=== PATIENT | female | born 1950 | race Caucasian/White ===

== ENCOUNTER → 2017-10-10 09:43 | Outpatient (CLI) | payer MEDICARE, SELFPAY ==
[2017-10-10 10:34] LABS: AST(SGOT) 20 U/L (15-37); Alanine Aminotransfer ALT/SGPT 23 U/L (13-56); Albumin, Serum 3.8 g/dL (3.2-5.0); Alkaline Phosphatase 72 U/L (45-117); Bilirubin, Direct 0.17 mg/dL (0.00-0.30); Cholesterol 112 mg/dL (200); Globulin 3.4 g/dL (2.2-4.2); High Density Lipoprotein 51 mg/dL; Protein, Total 7.2 g/dL (6.4-8.2); Triglycerides 137 mg/dL; Very Low Density Lipoprotein 27 mg/dL (5-40)
== END ==
PROVIDERS: Family Provider Family Medicine; PCP Family Medicine; Visit Provider Internal Medicine Cardiovascular Disease
DX: E78.5 Hyperlipidemia, unspecified (principal); Z79.899 Other long term (current) drug therapy
CPT/HCPCS: 36415; 80061; 80076

== ENCOUNTER → 2023-06-25 | Outpatient (CLI) | payer MEDICARE, SELFPAY ==
[2023-06-25 12:18] VITALS: PULSE 74; PULSE 75; PULSE 82; PULSE 83; PULSE 84; PULSE 86; PULSE 87; PULSE 89; O2SAT 92; O2SAT 93; O2SAT 94
--- NOTE | 2023-06-25 12:24 | CPS ---
PATIENT ARRIVED FOR WALK TEST IN A WHEELCHAIR DUE TO DISTANCE FROM MAIN ENTRANCE. ENTIRE TEST DONE WITH PATIENT ON ROOM AIR. SHE RESTED FREQUENTLY THROUGHOUT TESTING DUE TO INCREASED WOB AND DIZZINESS. SPO2 AND HR REMAINED STABLE. ATTEMPTED TO CARBON COATING MACHINE OPERATOR THE PATIENT THROUGH PURSED-LIP BREATHING TO SLOW HER RR, WHICH INCREASED RAPIDLY EACH TIME SHE BEGAN TO WALK. SHE WALKED 211FT DURING THE TEST AND WAS ASYMPTOMATIC UPON RESTING IN THE WHEELCHAIR.
--- NOTE | 2023-06-26 09:26 | PCM.PSN.6M ---
PSN 6 Minute Walk Test 6 Minute Walk Test 6 Minute Walk Test: 6 Minute Walk Test PSN:6-Minute Walk Test Start: 06/25/23 12:17 Freq: Status: Active Protocol: [id number] Document 06/25/23 12:18 [facility] (Rec: 06/25/23 12:32 [facility] [id number]) 6 Minute Walk Test Date Performed 06/25/23 Time Performed 12:05 Height 5 ft 3 in Weight: 100 lb Weight in Pounds 100.[address]: Germain [place] Assistive device used: None Pre-test Oxygen Delivery Method Room Air Pulse Ox 93 Pulse Rate (60-100) 74 Dyspnea Leandra Scale (0-10) 0 1st minute Oxygen Delivery Method Room Air Pulse Ox 93 Pulse Rate (60-100) 82 Dyspnea Leandra Scale (0-10) 2 Number of Rests Taken 1 Reported Symptoms Increased Work of Breathing 2nd minute Oxygen Delivery Method Room Air Pulse Ox 93 Pulse Rate (60-100) 83 Dyspnea Leandra Scale (0-10) 3 Number of Rests Taken 1 Reported Symptoms Increased Work of Breathing 3rd minute Oxygen Delivery Method Room Air Pulse Ox 94 Pulse Rate (60-100) 84 Dyspnea Leandra Scale (0-10) 4 Number of Rests Taken 1 Reported Symptoms Increased Work of Breathing, Dizziness 4th minute Oxygen Delivery Method Room Air Pulse Ox 93 Pulse Rate (60-100) 87 Dyspnea Leandra Scale (0-10) 4 Number of Rests Taken 1 Reported Symptoms Increased Work of Breathing, Dizziness 5th minute Oxygen Delivery Method Room Air Pulse Ox 93 Pulse Rate (60-100) 89 Dyspnea Leandra Scale (0-10) 4 Number of Rests Taken 1 Reported Symptoms Increased Work of Breathing, Dizziness 6th minute Oxygen Delivery Method Room Air Pulse Ox 92 Pulse Rate (60-100) 86 Dyspnea Leandra Scale (0-10) 4 Number of Rests Taken 1 Reported Symptoms Increased Work of Breathing, Dizziness Post-test Oxygen Delivery Method Room Air Pulse Ox 94 Pulse Rate (60-100) 75 Dyspnea Leandra Scale (0-10) 0 Full Laps Walked 3 Partial Lap, Number of Tiles Walked 34 Total Distance Walked (ft) 211 06/25/23 12:24 Cardiopulmonary Services by Iain PATIENT ARRIVED FOR WALK TEST IN A WHEELCHAIR DUE TO DISTANCE FROM MAIN ENTRANCE. ENTIRE TEST DONE WITH PATIENT ON ROOM AIR. SHE RESTED FREQUENTLY THROUGHOUT TESTING DUE TO INCREASED WOB AND DIZZINESS. SPO2 AND HR REMAINED STABLE. ATTEMPTED TO CAVITY PUMP OPERATOR THE PATIENT THROUGH PURSED-LIP BREATHING TO SLOW HER RR, WHICH INCREASED RAPIDLY EACH TIME SHE BEGAN TO WALK. SHE WALKED 211FT DURING THE TEST AND WAS ASYMPTOMATIC UPON RESTING IN THE WHEELCHAIR. Initialized on 06/25/23 12:24 - END OF NOTE Interpretation Interpretation: The patient ambulated 211 feet over the course of 6 minutes beginning on room air without assistive devices. Pretesting oxygen saturation was noted to be 93% on room air. With ambulation, the sri oxygen saturation was 92%. Although there was evidence of impaired walk distance, there was no significant exertional oxygen desaturation. Recommendations Recommendations: There is no indication for the use of supplemental oxygen at this time.
== END | disposition home or self-care (01) ==
LOC: PSN 11:57
PROVIDERS: Referring Provider Internal Medicine Critical Care Medicine; Visit Provider Internal Medicine Critical Care Medicine
DX: J44.9 Chronic obstructive pulmonary disease, unspecified (principal); F17.210 Nicotine dependence, cigarettes, uncomplicated
CPT/HCPCS: 94618

== ENCOUNTER → 2023-06-30 | Outpatient (CLI) | payer MEDICARE, SELFPAY | END | disposition home or self-care (01) | LOC: PSN 12:35 | PROVIDERS: Referring Provider Internal Medicine Critical Care Medicine; Visit Provider Internal Medicine Critical Care Medicine | DX: J44.9 Chronic obstructive pulmonary disease, unspecified (principal); F17.210 Nicotine dependence, cigarettes, uncomplicated | CPT/HCPCS: 94060; 94726 ==

== ENCOUNTER → 2023-07-07 | Outpatient (CLI) | payer MEDICARE, SELFPAY ==
--- OUTSIDE RECORDS SUMMARY | 2023-07-07 08:07 | XMS RPT_ITS | CCD ---
Author Name Unknown Address [address] [facility] [address] [place] [id number] Organization [facility] Care Team Providers Care Fabric Sourcer Name Role Phone Unavailable Primary Care Provider Unavailjuaquin SANDERS MD, SUSIE Wynne Primary Care Physician AVTAR POE DO Primary Care Physician AVTAR POE DO Primary Care Unavailable AVTAR POE DO Attending Unavailable AVTAR POE DO Primary Care Unavailable AVTAR POE DO Attending Unavailable AVTAR POE DO Primary Care Unavailable AVTAR POE DO Attending Unavailable AVTAR POE DO Attending Unavailable AVTAR POE DO Primary Care Unavailable AVTAR POE DO Primary Care Unavailable AVTAR POE DO Attending Unavailable AVTAR POE DO Primary Care Unavailable AVTAR POE DO Attending Unavailable AVTAR POE DO Primary Care Unavailable AVTAR POE DO Attending Unavailable Allergies Allergy Classification Reported Allergen(s) Allergy Type Date of Onset Reaction(s) Facility (2 sources) Naproxen Drug Allergy 0 Rash [place], [place] (2 sources) Penicillins Propensity to adverse reactions to drug 0 Hives [place], [place] (9 sources) Azithromycin; Translations: [azithromycin] Drug Allergy Nausea and vomiting (disorder) [facility] Work Phone: (9 sources) Ciprofloxacin; Translations: [ciprofloxacin] Drug Allergy Vomiting (disorder) [facility] Work Phone: (9 sources) Naproxen; Translations: [naproxen] Drug Allergy [facility] Work Phone: (9 sources) Penicillin; Translations: [penicillins] Drug Allergy [facility] Work Phone: (9 sources) tiotropium; Translations: [tiotropium] Drug Allergy Tremor (finding) [facility] Work Phone: Medications Current Medications Medication Drug Class(es) Dates Sig (Normalized) Sig (Original) albuterol MDI (90 mcg/inh) CFC free inhalation aerosol (9 sources) Start: 05-19-2023 take 2 puff(s) by inhalation every four hours as needed for wheezing albuterol MDI (90 mcg/inh) CFC free inhalation aerosol 2 puff(s), Inhalation, q4h, PRN as needed for wheezing, Desires Ventolin inhaler brand, # 18 gram(s), 0 Refill(s), Pharmacy: [facility] #[id number], Acute bacterial bronchitis, 161.5, cm, 05/19/23 15:56:00 EST, Height, kg, 05/19/23 15:56:00 EST, Dosing Weight Start Date: 05/19/23 Status: Ordered Completed/Discontinued Medications Medication Drug Class(es) Dates Sig (Normalized) Sig (Original) albuterol 5 mg/ml inhalation solution (15 sources) beta2-Adrenergic Agonist Start: 03-16-2023 take 0.5 mL by inhalation every four hours as needed for wheezing albuterol 5 mg/mL (0.5%) inhalation solution Dose : 2.5 mg = 0.5 mL, Inhalation, q4h, PRN for wheezing, # 30 EA, 0 Refill(s), Pharmacy: [facility] #[id number], 162, cm, 03/16/23 15:12:00 EDT, Height, kg, 03/16/23 15:12:00 EDT, Dosing Weight Start Date: 03/16/23 Status: Ordered Problems Active Problems Problem Classification Problem Date Documented Da te Episodic/Chronic Acute myocardial infarction (2 sources) Myocardial infarction 11-05-2014 Chronic Anxiety disorders (8 sources) Anxiety; Translations: [Generalized anxiety disorder] 08-02-2021 Chronic Asthma (9 sources) Asthma 11-05-2014 Chronic Chronic obstructive pulmonary disease and bronchiectasis (9 sources) Chronic obstructive lung disease 11-05-2014 Chronic Coronary atherosclerosis and other heart disease (16 sources) Coronary arteriosclerosis; Translations: [History of myocardial infarction] 05-03-2021 Chronic Coronary atherosclerosis and other heart disease (9 sources) Stented coronary artery; Translations: [Presence of coronary angioplasty implant and graft] Onset: 03-16-2023 06-13-2022 Episodic Diabetes mellitus with complications (2 sources) Type 2 diabetes mellitus with other circulatory complications; Translations: [Type 2 diabetes mellitus with other circulatory complications] Onset: 03-16-2023 Chronic Diabetes mellitus without complication (9 sources) Diabetes mellitus; Translations: [Type 2 diabetes mellitus] 09-07-2013 Chronic Essential hypertension (9 sources) Essential hypertension 09-07-2013 Chronic Neoplasms of unspecified nature or uncertain behavior (1 source) Thrombocytosis 07-04-2022 Chronic Nutritional deficiencies (6 sources) Vitamin D deficiency 06-23-2022 Chronic Osteoporosis (4 sources) Osteoporosis 09-26-2022 Chronic Other and unspecified benign neoplasm (9 sources) History of polyp of colon 09-07-2013 Episodic Other hematologic conditions (1 source) Thrombocytosis; Translations: [Thrombocytosis, unspecified] Episodic Other nervous system disorders (4 sources) Tremor 12-02-2022 Episodic Residual codes; unclassified (5 sources) Family history of cancer of colon 09-12-2022 Episodic Respiratory failure; insufficiency; arrest (adult) (7 sources) Dependence on supplemental oxygen 06-13-2022 Chronic Substance-related disorders (7 sources) Anxiolytic dependence 06-13-2022 Chronic Past or Other Problems Problem Classification Problem Date Documented Da te Episodic/Chronic Cataract (4 sources) Combined forms of age-related cataract, left eye; Translations: [Combined forms of age-related cataract, right eye] Onset: 04-05-2020 Resolved: 08-27-2020 04-09-2020 Chronic Results Test Name Value Interpretation Reference Range Facil ity Vital Signs Date Time Vital Sign Value Performing Clinician Barney franklin 08-27-2020 15:04-0400 Body Temperature 98.8 [degF] Felisa Matthews [employer] Work Phone: 08-27-2020 15:04-0400 BP Diastolic 101 mm[Hg] Felisa Matthews [employer] Work Phone: 08-27-2020 15:04-0400 BP Systolic 134 mm[Hg] Felisa Matthews [employer] Work Phone: 08-27-2020 15:04-0400 Pulse (Heart Rate) 87 /min Felisa Matthews [employer] Work Phone: 08-27-2020 15:04-0400 Pulse Oximetry 96 % Felisa Matthews [employer] Work Phone: 08-27-2020 15:04-0400 Respiratory Rate 15 /min Felisa Matthews [employer] Work Phone: 08-27-2020 12:30-0400 BMI (Body Mass Index) 24.45 kg/m2 Felisa Matthews [employer] Work Phone: 08-27-2020 12:30-0400 Body weight 62.6 kg Felisa Matthews [employer] Work Phone: 08-27-2020 12:30-0400 Height 160 cm Felisa Matthews [employer] Work Phone: 04-09-2020 14:06-0500 Body Temperature 98.2 [degF] [facility] [place] 04-09-2020 14:06-0500 BP Diastolic 85 mm[Hg] [facility] [place] 04-09-2020 14:06-0500 BP Systolic 135 mm[Hg] [facility] [place] 04-09-2020 14:06-0500 Pulse (Heart Rate) 75 /min Fel[facility] [place] 04-09-2020 14:06-0500 Pulse Oximetry 94 % [facility] [place] 04-09-2020 14:06-0500 Respiratory Rate 16 /min Felisa [facility] [place] 04-09-2020 11:47-0500 BMI (Body Mass Index) 24.09 kg/m2 Felisa [facility] [place], [place] 04-09-2020 11:47-0500 Body weight 61.69 kg [facility] 04-09-2020 11:47-0500 Height 160 cm [place], [place] Encounters Encounter Date Encounter Type Care Provider Facility Start: 06-19-2023 End: 06-23-2023 Outreach Lab AVTAR POE DO [facility] Start: 06-15-2023 End: 06-15-2023 Patient encounter procedure AVTAR Greta POE DO [facility] Start: 06-08-2023 ambulatory AVTAR POE DO Faci lity:B Start: 06-04-2023 ambulatory AVTAR POE DO Faci lity:B Start: 06-04-2023 End: 06-05-2023 ambulatory AVTAR POE DO Facility:B Start: 06-04-2023 End: 06-04-2023 Patient encounter procedure AVTAR POE DO [facility] Start: 03-16-2023 End: 03-21-2023 ambulatory AVTAR POE DO Facility:B Start: 03-16-2023 End: 03-21-2023 Encounter for general adult medical examination without abnormal findings AVTAR POE DO Facility:B Start: 03-16-2023 End: 03-20-2023 Outreach Lab AVTAR POE DO [facility] Start: 09-24-2022 End: 09-25-2022 ambulatory AVTAR POE DO Facility:B Start: 09-24-2022 End: 09-24-2022 Patient encounter procedure AVTAR POE DO [facility] Start: 09-04-2022 End: 09-05-2022 ambulatory AVTAR POE DO Facility:B Start: 09-04-2022 End: 09-04-2022 Patient encounter procedure AVTAR POE DO [facility] Start: 09-04-2022 End: 09-04-2022 Well adult monitoring check done AVTAR Greta DEEPIKA DO [facility] Start: 06-20-2022 End: 06-21-2022 ambulatory AVTAR POE DO Facility:B Start: 06-20-2022 End: 06-20-2022 Patient encounter procedure AVTAR POE DO [facility] Start: 08-27-2021 End: 08-27-2021 Patient encounter procedure SUSIE SANDERS MD [facility] Start: 07-29-2021 End: 07-29-2021 Patient encounter procedure SUSIE SANDERS MD [facility] Start: 08-27-2020 End: 08-27-2020 Subsequent hospital visit by physician Felisa Matthews Work Phone: [facility] Surgery Procedures Date Procedure Procedure Detail Performing Clinician Start: 04-09-2020 OPERATIVE REPORT 3m Sca nning Start: 10-26-2011 Catheterization SUSIE SANDERS MD Start: 06-11-2007 Colonoscopy SUSIE DUMONT MD Plan of Treatment Date Care Activity Detail Author Start: 01-17-2020 Influenza vaccination Flu vaccine (# 1) [place], [place] Start: 2017 Pneumococcal 65+ yea rs Vaccine (1 of 1 - PPSV23) Pneumococcal 65+ years Vaccine (1 of 1 - PPSV23) [place] Start: 09-23-2007 Screening for malign ant neoplasm of lung Low dose CT lung screening [place], [place] Start: 09-23-2007 Screening for osteoporosis DEXA (modify frequency per FRAX score) [place] Start: 2002 Screening for malign ant neoplasm of breast Breast cancer screen [place], [place] Start: 2002 Screening for malign ant neoplasm of colon Colon cancer screen colonoscopy [place], [place] Start: 2002 Shingles Vaccine (1 of 2) Shingles V accine (1 of 2) [place] Start: 09-23-1971 DTaP/Tdap/Td vaccine (1 - Tdap) DTaP/Tdap/Td vaccine (1 - Tdap) [place], [place] Start: 1968 COVID-19 Vaccine (1) COVID-19 Vaccin e (1) [facility] Work Phone: Start: 1962 Lipid panel Lipid screen [place], [place] Start: 1952 Hepatitis C screening Hepatitis C sc reen [place], [place] End: 04-09-2020 Blood glucose - POCT Blood glucose - POCT Point of Care Testing STAT One Time for 1 Occurrences starting 04/09/2020 until 04/09/2020 [place] Immunizations Immunization Date Immunization Notes Care Provider Fa [facility] 03-05-2023 RSV vaccine preF3, recombinant 1 AVTAR POE DO [facility] Payers Date Payer Category Payer Medicare [id number] 1950 Unknown [id number] [id number] 1950 Unknown [id number] [id number] [id number] 1950 Unknown [id number] 2.16.8 [id number] 1950 Unknown [id number] 2.16.8 [id number] 1950 Unknown [id number] 2.16.8 [id number] 1950 Unknown [id number] 2.16.8 [id number] 1950 Unknown [id number] [id number] [id number] Social History Date Type Detail Facility Start: 04-09-2020 End: 08-27-2020 Tobacco smoking status NHIS Current every day smoker [place] History of tobacco use Cigarette Smoker [place] Start: 04-09-2020 End: 08-27-2020 Cigarettes smoked current (pack per day) - Reported [place] Start: 04-09-2020 End: 08-27-2020 Tobacco use and exposure Never used [place], [place] Start: 04-09-2020 End: 08-27-2020 Alcohol intake Current drinker of alcohol (finding) [place] Start: 04-05-2020 Alcohol Comment rarely [place], [place] Sex Assigned At Not on file [place] Exposure to SARS-CoV -2 (event) Not sure [facility] Work Phone: Start: 11-30-2018 Heavy tobacco smoker (finding) [facility] Sex Assigned At Female [facility] Clinical Notes 09-24-2022 LaboratoryLaboratoryLaboratoryLaboratoryRadiologyLaboratoryLaboratoryRadiology Note Date & Type Note Facility 09-24-2022 Note ORIGINAL EXAMINATION: BONE DENSITOMETRY09/24/2022 2:02 pm TECHNIQUE: Dual energy bone densitometry lumbar spine and left hip. COMPARISON: 02/11/2016 HISTORY: Reason for Exam: Osteoporosis Screening FINDINGS: T Score Left Femoral Neck: -2.7 Left Femoral Neck: 0.551 (g/cm2) T Score Left Hip: -3.0 Left Hip: 0.573 (g/cm2) T Score Lumbar Spine: -3.0 Lumbar Spine: 0.713 (g/cm2) COMMENTS: Done on new machine with new technique BMD Change from previous Hip:-15.1%, significant BMD Change from previous Lumbar Spine:-5.8%, significant IMPRESSION: Osteoporosis. Interpreted by: Vale Cade MD Preliminary Report By: Vale Cade MD Electronically signed By Vale Cade MD Dictated Date: 09/24/2022 2:16:09 PM Prelim Date: 09/24/2022 2:17:53 PM Sign Date: 09/24/2022 2:17:53 PM Ordering Provider: [facility] 09-24-2022 Note ORIGINAL EXAMINATION: BONE DENSITOMETRY09/24/2022 2:02 pm TECHNIQUE: Dual energy bone densitometry lumbar spine and left hip. COMPARISON: 02/11/2016 HISTORY: Reason for Exam: Osteoporosis Screening FINDINGS: T Score Left Femoral Neck: -2.7 Left Femoral Neck: 0.551 (g/cm2) T Score Left Hip: -3.0 Left Hip: 0.573 (g/cm2) T Score Lumbar Spine: -3.0 Lumbar Spine: 0.713 (g/cm2) COMMENTS: Done on new machine with new technique BMD Change from previous Hip:-15.1%, significant BMD Change from previous Lumbar Spine:-5.8%, significant IMPRESSION: Osteoporosis. Interpreted by: Vale Cade MD Preliminary Report By: Vale Cade MD Electronically signed By Vale Cade MD Dictated Date: 09/24/2022 2:16:09 PM Prelim Date: 09/24/2022 2:17:53 PM Sign Date: 09/24/2022 2:17:53 PM Ordering Provider: [facility] Evaluation + Plan note Future Appointments Appointment Date:08/02/2021 03:45:00 PM Scheduled Provider:SUSIE SANDERS MD [facility] Appointment Type:PC OV Future Scheduled TestsComplete Blood Count 05/03/21Lipid Profile 05/03/21Complete Metabolic Panel 05/03/21 [facility] Evaluation + Plan note Future Appointments Appointment Date:11/01/2021 03:30:00 PM Scheduled Provider:SUSIE SANDERS MD Location:[facility] Appointment Type:PC OV Future Scheduled TestsComplete Blood Count 05/03/21Lipid Profile 05/03/21Complete Metabolic Panel 05/03/21 [facility] Evaluation + Plan note Future Appointments Appointment Date:09/12/2022 01:00:00 PM Scheduled Provider:AVTAR POE DO Location:[facility] Appointment Type:PC OV Follow Up [facility] Evaluation + Plan note Future Appointments Appointment Date:10/22/2022 01:30:00 PM Scheduled Provider:AVTAR POE DO Location:[facility] Appointment Type:PC OV Appointment Date:10/29/2022 01:00:00 PM Scheduled Provider:AVTAR POE DO Location:[facility] Appointment Type:PC OV [facility] Evaluation + Plan note Future Appointments Appointment Date:05/19/2023 04:00:00 PM Scheduled Provider:AVTAR POE DO Location:[facility] Appointment Type:PC OV Future Scheduled TestsLDL-Cholesterol, Direct 03/16/23Thyroid Stimulating Hormone 03/16/23Free T4 03/16/23A1C Hemoglobin 03/16/23Complete Blood Count 03/16/23Lipid Profile 03/16/23Vitamin D Level 03/16/23Complete Metabolic Panel 03/16/23 [facility] Evaluation + Plan note Future Appointments Appointment Date:06/15/2023 02:30:00 PM Scheduled Provider: Location:[facility] Appointment Type:CT Chest w/ Contrast Appointment Date:07/09/2023 03:00:00 PM Scheduled Provider: Location:[facility] Appointment Type:NUT Diet Visit Individual Future Scheduled TestsLDL-Cholesterol, Direct 03/16/23Magnesium Level 05/19/23Urinalysis 05/19/23Thyroid Stimulating Hormone 05/19/23Thyroid Stimulating Hormone 03/16/23Free T4 03/16/23Vitamin B12 Level 05/19/23A1C Hemoglobin 05/19/23A1C Hemoglobin 03/16/23Complete Blood Count 05/19/23Complete Blood Count 03/16/23CRP, High Sensitive 05/19/23Lipid Profile 05/19/23Lipid Profile 03/16/23Hepatitis C Antibody IgG 05/19/23IV 1/2 Ab 05/19/23Prealbumin 05/19/23Sedimentation Rate Automated 05/19/23Vitamin D Level 05/19/23Vitamin D Level 03/16/23Complete Metabolic Panel 05/19/23Complete Metabolic Panel 03/16/23CT Thorax w/ Contrast 06/15/23 [facility] Evaluation + Plan note Future Appointments Appointment Date:07/09/2023 03:00:00 PM Scheduled Provider: Location:[facility] Appointment Type:NUT Diet Visit Individual Future Scheduled TestsLDL-Cholesterol, Direct 03/16/23Magnesium Level 05/19/23Urinalysis 05/19/23Thyroid Stimulating Hormone 05/19/23Thyroid Stimulating Hormone 03/16/23Free T4 03/16/23Vitamin B12 Level 05/19/23A1C Hemoglobin 05/19/23A1C Hemoglobin 03/16/23Complete Blood Count 05/19/23Complete Blood Count 03/16/23CRP, High Sensitive 05/19/23Lipid Profile 05/19/23Lipid Profile 03/16/23Hepatitis C Antibody IgG 05/19/23IV 1/2 Ab 05/19/23Prealbumin 05/19/23Sedimentation Rate Automated 05/19/23Vitamin D Level 05/19/23Vitamin D Level 03/16/23Complete Metabolic Panel 05/19/23Complete Metabolic Panel 03/16/23 [facility] Evaluation + Plan note Future Appointments Appointment Date:07/09/2023 03:00:00 PM Scheduled Provider: Location:[facility] Appointment Type:NUT Diet Visit Individual Appointment Date:08/14/2023 04:00:00 PM Scheduled Provider:AVTAR POE DO Location[facility] Appointment Type:PC OV Future Scheduled TestsUrinalysis 05/19/23PET/CT Initial Staging Tumor Skull Base to Mid-Thigh 06/19/23 [facility] Hospital course Narrative No data available for this section [facility] Hospital Discharge instructions No data available for this section [facility] Progress note No data available for this section [facility] Discharge Instructions * Instructions* Felisa Matthews MD - 04/09/2020 Post-Operative Cataract Instructions You may take the patch and shield off and start taking eye drops 4 hours after leaving the hospital. Your vision will be blurry. Starting drops will accelerate your healing process. After using the eye drops, replace the metal or plastic eye shield over the operative eye using a single piece of take Do NOT reapply the cotton patch. ? PREDNISOLONE ACETATE 1%: Apply 1 drop to the surgical eye EVERY HOUR while awake. ? VIGAMOX: Apply 1 drop to the surgical eye EVERY 2 HOUR while awake. ? NEVANAC: Apply 1 drop to the surgical eye EVERY 2 HOUR while awake. Wait 5 minutes in between eye drops. The order does not matter. Continue taking the drops in thismanner until your appointment tomorrow. What to Expect at Home Your Recovery: After surgery, your eye will not hurt. But it may feel scratchy, sticky, or uncomfortable. It may also water more than usual. Most people see better 1 to 3 days after surgery. But it could take 3 to 10 weeks to get the full benefits of surgery and to see as clearly as possible. Your doctor may send you home with a bandage, patch, or clear shield on your eye. This will keep you from rubbing your eye. Your doctor will also give you eyedrops to help your eye heal. Use them exactly as directed. You can read or watch TV right away, but things may look blurry. Most people are able to return to work or their normal routine in 1 to 3 days. After your eye heals, you may still need to wear glasses, especially for reading. This care sheet gives you a general idea about how long it will take for you to recover. But each person recovers at a different pace. Follow the steps below to get better as quickly as possible. How can you care for yourself at home? Activity Rest when you feel tired. Getting enough sleep will help you recover. You may have trouble judging distances for a few days. Move slowly, and be careful going up and down stairs and pouring hot liquids. Ask for help if you need it. Ask your doctor when it is okay to drive. Wear your eye bandage, patch, or shield for as long as your doctor recommends. You may only need towear it when you sleep. You can shower or wash your hair the day after surgery. Keep water, soap, shampoo, hair spray, and shaving lotion out of your eye, especially for the first week. Do not rub or put pressure on your eye for at least 1 week. Do not wear eye makeup for 1 to 2 weeks. You may also want to avoid face cream or lotion. Do not get your hair colored or permed for 10 days after surgery. Do not bend over or do any strenuous activities, such as biking, jogging, weight lifting, or aerobic exercise, for 2 weeks or until your doctor says it is okay. Avoid swimming, hot tubs, gardening, and dusting for 1 to 2 weeks. Wear sunglasses on bright days for at least 1 year after surgery. Medicines Your doctor will tell you if and when you can restart your medicines. He or she will also give you instructions about taking any new medicines. If you take blood thinners, such as warfarin (Coumadin), clopidogrel (Plavix), or aspirin, be sure to talk to your doctor. He or she will tell you if and when to start taking those medicines again. Make sure that you understand exactly what your doctor wants you to do. Follow your doctor's instructions for when to use your eyedrops. Always wash your hands before you put your drops in. To put in eyedrops: -Tilt your head back, and pull your lower eyelid down with one finger. -Drop or squirt the medicine inside the lower lid. -Close your eye for 30 to 60 seconds to let the drops or ointment move around. -Do not touch the ointment or dropper tip to your eyelashes or any other surface. Follow your doctor's instructions for taking pain medicines. Follow-up care is a coles part of your treatment and safety. Be sure to make and go to all appointments, and call your doctor if you are having problems. It's also a good idea to know your test results and keep a list of the medicines you take. When should you call for help? Call 911 anytime you think you may need emergency care. For example, call if: You passed out (lost consciousness). You have severe trouble breathing. You have sudden chest pain and shortness of breath, or you cough up blood. Call your doctor now or seek immediate medical care if: You have eye pain. You have pus draining from your eye. Your vision gets worse. Your eye is still red and bloodshot after 3 or 4 days. You notice new floaters, flashes of light, or changes in your field of vision. Watch closely for changes in your health, and be sure to contact your doctor if you have any problems. documented in this encounter* Instructions* Felisa Matthews MD - 08/27/2020 Post-Operative Cataract Instructions You may take the patch and shield off and start taking eye drops 3 hours after leaving the hospital. Your vision will be blurry. Starting drops will accelerate your healing process. After using the eye drops, replace the metal or plastic eye shield over the operative eye using a single piece of take Do NOT reapply the cotton patch. PREDNISOLONE ACETATE 1%: Apply 1 drop to the surgical eye EVERY HOUR while awake. VIGAMOX: Apply 1 drop to the surgical eye EVERY 2 HOUR while awake. NEVANAC: Apply 1 drop to the surgical eye EVERY 2 HOUR while awake. Wait 5 minutes in between eye drops. The order does not matter. Continue taking the drops in thismanner until your appointment tomorrow. What to Expect at Home Your Recovery: After surgery, your eye will not hurt. But it may feel scratchy, sticky, or uncomfortable. It may also water more than usual. Most people see better 1 to 3 days after surgery. But it could take 3 to 10 weeks to get the full benefits of surgery and to see as clearly as possible. Your doctor may send you home with a bandage, patch, or clear shield on your eye. This will keep you from rubbing your eye. Your doctor will also give you eyedrops to help your eye heal. Use them exactly as directed. You can read or watch TV right away, but things may look blurry. Most people are able to return to work or their normal routine in 1 to 3 days. After your eye heals, you may still need to wear glasses, especially for reading. This care sheet gives you a general idea about how long it will take for you to recover. But each person recovers at a different pace. Follow the steps below to get better as quickly as possible. How can you care for yourself at home? Activity Rest when you feel tired. Getting enough sleep will help you recover. You may have trouble judging distances for a few days. Move slowly, and be careful going up and down stairs and pouring hot liquids. Ask for help if you need it. Ask your doctor when it is okay to drive. Wear your eye bandage, patch, or shield for as long as your doctor recommends. You may only need towear it when you sleep. You can shower or wash your hair the day after surgery. Keep water, soap, shampoo, hair spray, and shaving lotion out of your eye, especially for the first week. Do not rub or put pressure on your eye for at least 1 week. Do not wear eye makeup for 1 to 2 weeks. You may also want to avoid face cream or lotion. Do not get your hair colored or permed for 10 days after surgery. Do not bend over or do any strenuous activities, such as biking, jogging, weight lifting, or aerobic exercise, for 2 weeks or until your doctor says it is okay. Avoid swimming, hot tubs, gardening, and dusting for 1 to 2 weeks. Wear sunglasses on bright days for at least 1 year after surgery. Medicines Your doctor will tell you if and when you can restart your medicines. He or she will also give you instructions about taking any new medicines. If you take blood thinners, such as warfarin (Coumadin), clopidogrel (Plavix), or aspirin, be sure to talk to your doctor. He or she will tell you if and when to start taking those medicines again. Make sure that you understand exactly what your doctor wants you to do. Follow your doctor's instructions for when to use your eyedrops. Always wash your hands before you put your drops in. To put in eyedrops: -Tilt your head back, and pull your lower eyelid down with one finger. -Drop or squirt the medicine inside the lower lid. -Close your eye for 30 to 60 seconds to let the drops or ointment move around. -Do not touch the ointment or dropper tip to your eyelashes or any other surface. Follow your doctor's instructions for taking pain medicines. Follow-up care is a coles part of your treatment and safety. Be sure to make and go to all appointments, and call your doctor if you are having problems. It's also a good idea to know your test results and keep a list of the medicines you take. When should you call for help? Call 911 anytime you think you may need emergency care. For example, call if: You passed out (lost consciousness). You have severe trouble breathing. You have sudden chest pain and shortness of breath, or you cough up blood. Call your doctor now or seek immediate medical care if: You have eye pain. You have pus draining from your eye. Your vision gets worse. Your eye is still red and bloodshot after 3 or 4 days. You notice new floaters, flashes of light, or changes in your field of vision. Watch closely for changes in your health, and be sure to contact your doctor if you have any problems. documented in this encounter History of Present Illness * Ashley Alston RN - 04/09/2020 2:29 PM EST Phase II indicated, pt awake and talking, VS stable, pt dressed and ambulated to wheelchair withoutdifficulty, home going instructions reviewed with patient, verbal understanding demonstrated and opportunity given for questions * Ashley Alston RN - 04/09/2020 2:08 PM EST PATIENT RECEIVED FROM OR VIA CART. SPONT RESP. WITH WINDOWS CONSULTANT IN ATTENDANCE. documented in this encounter* Linda Vazquez RN - 08/27/2020 3:28 PM EDT Pt arrive from OR alert and awake, VS stable ,eye shield in place, Dr. Matthews spoke with pt, discharge instructions given to pt and verbal understanding from pt documented in this encounter Assessments Diagnosis Combined form of age-related cataract, left eye Advance Directives Latest Code Status on File Code Status Date Activated Date Inactivated Comments Full Code 04/09/2020 11:43 AM Latest Code Status on File Code Status Date Activated Date Inactivated Comments Full Code 08/27/2020 12:15 PM Full Code 04/09/2020 11:43 AM 04/09/2020 4:51 PM Summary Purpose Family History No Family History Records Found Additional Source Comments Care Team (unrecognized sect ion and content) Personnel Name: SUSIE SANDERS MD Address: [address] [place] [address] Care Team Personnel Name: JOSE ENRIQUE ZARAGOZA MD Member Role: School Crossing Guard Supervisor Address: Address: [address] [place] [address] Name: PREETI SMITH MD Position: Physician Member Role: Supervisor Sterile Processing Address: Address: [address] [place] [address] Name: AVTAR POE DO Position: P4 Physician - Primary Care Member Role: Primary Care Physician Address: Address: [address] [place] [address] Care Team Related Persons Name: MARISABEL WRIGHT Address: Home [address] [place], [place] [id number] [place] Name: UMBERTO WRIGHT Address: Home [address] [place], [place] [phone] [place] Care Team Personnel Name: JOSE ENRIQUE ZARAGOZA MD Member Role: School Crossing Guard Supervisor Address: Address: [address] [place] [address] Name: PREETI SMITH MD Position: Physician Member Role: Supervisor [employer]ile Processing Address: Address: [address] [place] [address] Name: AVTAR POE DO Position: P4 Physician - Primary Care Member Role: Primary Care Physician Address: Address: [address] [place] [address] Care Team Related Persons Name: MARISABEL WRIGHT Address: Home [address] [place], [place] [phone] [place] Name: UMBERTO WRIGHT Address: Home [address] [place], [place] [phone] [place] Care Team Personnel Name: JOSE ENRIQUE ZARAGOZA MD Member Role: School Crossing Guard Supervisor Address: Address: [address] [place] [address]- [place] Name: PREETI SMITH MD Position: Physician Member Role: Supervisor Sterile Processing Address: Address: [address] [facility] [place] [address]- [place] Name: AVTAR POE DO Position: P4 Physician - Primary Care Member Role: Primary Care Physician Address: Address: [address] [place] [address]- Care Team Related Persons Name: KYLE MARISABEL Address: Home [address] [facility] [phone] [place] Name: UMBERTO WRIGHT Address: Home [address] [place], [place] [phone] [place] Care Team Personnel Name: JOSE ENRIQUE ZARAGOZA MD Member Role: School Crossing Guard Supervisor Address: Address: [address] [facility] [address] [place] [address]- [place] Name: PREETI SMITH MD Position: Physician Member Role: Supervisor [employer]ile Processing Address: Address: [address] [facility] [place] [address]- [place] Name: AVTAR POE DO Position: P4 Physician - Primary Care Member Role: Primary Care Physician Address: Address: [address] [place] [address]- Care Team Related Persons Name: KYLEMARISABEL Mendes Address: Home [address] [facility] [phone] [place] Name: UMBERTO WRIGHT Address: Home [address] [place], [place] [phone] [place] Care Team Personnel Name: JOSE ENRIQUE ZARAGOZA MD Member Role: School Crossing Guard Supervisor Address: Address: [address] [place] [address]- [place] Name: PREETI SMITH MD Position: Physician Member Role: Supervisor Sterile Processing Address: Address: [address] [facility] [place] [address]- [place] Name: AVTAR POE DO Position: P4 Physician - Primary Care Member Role: Primary Care Physician Address: Address: [address] [place] [address]- Care Team Related Persons Name: MARISABEL WRIGHT Address: Home [address] [place], [place] [phone] [place] Name: KYLEUMBERTO Mendes Address: Home [address] [place], [place] [phone] Care Team Personnel Name: JOSE ENRIQUE ZARAGOZA MD Member Role: School Crossing Guard Supervisor Address: Address: [address] [place] [address] Name: PREETI SMITH MD Position: Physician Member Role: Supervisor Sterile Processing Address: Address: [address] [place] [address] Name: AVTAR POE DO Position: P4 Physician - Primary Care Member Role: Primary Care Physician Address: Address: [address] [place] [address] Care Team Related Persons Name: KYLEMARISABEL Mendes Address: [address] [phone] [place] Name: KYLEUMBERTO Mendes Address: [place] [address] [place] [phone] Care Team (unrecognized sect ion and content) Care Team Personnel Name: JOSE ENRIQUE ZARAGOZA MD Member Role: School Crossing Guard Supervisor Address: Address: [address] [place] [address] [place] Name: PREETI SMITH MD Position: Physician Member Role: Supervisor Sterile Processing Address: Address: [address] [place] [address] Name: AVTAR POE DO Position: P4 Physician - Primary Care Member Role: Primary Care Physician Address: Address: [address] [place] [address] Care Team Related Persons Name: MARISABEL WRIGHT Address: [place] [address] [place] [phone] [place] Name: UMBERTO WRIGHT Address: [place] [address] [place] [phone] INFORMATION SOURCE (unrecogn ized section and content) FOR RECORDS PERTAINING TO PATIENTS WHO ARE OR HAVE BEEN ENROLLED IN A CHEMICAL DEPENDENCY/SUBSTANCEABUSE PROGRAM, SOME INFORMATION MAY BE OMITTED. This clinical summary was aggregated from multiple sources. Caution should be exercised in using it in the provision of clinical care. This summary normalizes information from multiple sources, and as a consequence, information in this document may materially change the coding, format and clinical context of patient data. In addition, data may be omitted in some cases. CLINICAL DECISIONS SHOULD BE BASED ON THE PRIMARY CLINICAL RECORDS. [facility]. provides no warranty or guarantee of the accuracy or completeness of information in this document.
--- NOTE | 2023-07-07 08:30 | PET_ITS ---
EXAMINATION: FDG PET/CT ? INDICATIONS: 72-year-old female with a history of apparent pulmonary nodularity. ? COMPARISON EXAMINATION: None available ? INDEX LESION SIZE SUV INTERPRETATION Left lower lung field, left lower lobe 8.7 mm 3.1 Quantitative criteria for viable neoplasm are fulfilled, histopathologic analysis is recommended. ? TECHNIQUE: Following the intravenous administration of 14.45 mCi of F-18 deoxyglucose via the right antecubital fossa, multiplanar image acquisitions of the head, neck, chest, abdomen and pelvis to the level of the midthigh, obtained at one-hour post radiopharmaceutical administration contemporaneously interpreted with the current CT of the chest, abdomen and pelvis dated 07/07/2023 via coregistration reveal: ? SERUM GLUCOSE LEVEL:? 95 mg/dL? HEIGHT:?? 63 inches WEIGHT:?? 100 pounds ? FINDINGS: ? HEAD/NECK:? There is no evidence of abnormal increased glucose metabolism in the pharyngeal mucosal space, parapharyngeal space, oropharynx, bilateral-lateral and anterior neck, hypopharynx and distribution of the larynx. ? The visualized portion of the cerebral cortical-subcortical structures demonstrate symmetric and preserved glucose metabolism. ? CHEST:? Focal increased radiotracer distribution is defined in the left mid lateral lung zone, left lower lobe generating a calculated maximum standard uptake value of 3.1. The maximal axial diameter of the corresponding parenchymal density is 8 7 mm. ? CT of the chest demonstrates the following anatomic characteristics: Atherosclerotic calcification is defined in the thoracic aorta without evidence of dilatation, aneurysm formation. Coronary artery calcification is observed. Bilateral axillary soft tissue densities are ametabolic. Emphysematous changes are defined in the bilateral upper-mid lung zones. ? ABDOMEN/PELVIS:? Normal physiologic distribution of the radiopharmaceutical is identified in the hepatic (2.5) and splenic parenchyma, both renal units, urinary bladder, and visualized intestinal tract. ? CT of the abdomen and pelvis is remarkable for the following: The gallbladder is surgically absent. Calcification is noted in the abdominal aorta with a maximal axial diameter of 26. 5 mm. Pelvic arterial calcification is observed. Calcification is visualized in the region of the pancreatic head. Colonic diverticulosis is noted without evidence of diverticulitis. Right and left inguinal soft tissue densities with fatty hilus are ametabolic. ? SKELETAL:? There is no evidence of quantitatively significant enhanced glucose metabolism on meticulous inspection of the appendicular and axial skeletal structures. ? Degenerative changes defined in the thoracic and lumbar spine demonstrate no evidence of increased glucose metabolism. There are no sclerotic, mixed sclerotic-lytic, or primarily lytic changes defined in the axial skeletal structures with evidence of increased FDG uptake. ? PET/PET/CT Tumor Base -Thigh Init IMPRESSION: 1. Increased tracer uptake noted in the left mid lateral lung field, left lower lobe fulfills quantitative criteria for viable neoplasm with single point technique. Histopathologic analysis is recommended.? (Belia et al, Journal of Nuclear Medicine, 32:1, 1991). 2. No other quantitatively significant hypermetabolic abnormalities are noted. Electronic Signature Jose Alberto Brush D.O. Accurate Quantification of SUVs for this report are calculated using the exclusive [employer]. (U.S. Patent No. 10, 674, 983 B2 [phone] [place] patent [id number] [id number]). Standardization and correction of the FDG SUV metric via [employer]UQUAN technology allow for vendor non-specific objective quantitative examination comparison and optimization of the sensitivity and specificity of the FDG PET-CT examination. . [email or web address] Electronically Signed: Jose Alberto Brush DO at 9:07 EST ,
== END | disposition home or self-care (01) ==
DX: R91.1 Solitary pulmonary nodule (principal); J44.9 Chronic obstructive pulmonary disease, unspecified; R91.8 Other nonspecific abnormal finding of lung field; Z72.0 Tobacco use; Z99.81 Dependence on supplemental oxygen
CPT/HCPCS: 78815; A9552

== ENCOUNTER 2023-08-18 08:25 | Outpatient (CLI) | payer MEDICARE, SELFPAY ==
[2023-08-18] VITALS (16 sets, daily range): BP systolic 116–146; BP diastolic 68–85; PULSE 85–92; RESP 18–26; TEMP 36.3–36.6; O2SAT 92–99; BMI 16.8
--- NOTE | 2023-08-18 | ASPIGT_PTH ---
PATIENT: NELSON WRIGHT LOC: CT U#:[id number] AGE/SX: 72/F ROOM: RE08/18/[address]: YOANNA Nicole : 1950 BED: DIS: 08/18/2023 SPEC #: [id number] RECD: 08/18/23 11:12 STATUS: MCKINLEY KRYSTLE #: [id number] LULA: 08/18/23 00:[address]: Sandra Wahl NP DEPT: SURGICAL PATHOLOGY RECD BY: Lulu Hedrick ENTERED: 08/18/23 11:12 SP TYPE: ASP RAD OTHR DR: Dr. Arturo Greene, DO Tissues: Lung, NOS Procedures: FNA Specimen Adequacy Gen Path Consultation (on slides) Special Stain Group II Surgery Specimen Level IV Imprint (control) HEADER OPERATION: Ct guided left lung biopsy PRE-OP DIAGNOSIS: Left lung mass TISSUE SUBMITTED: Left lung mass MICROSCOPIC DIAGNOSIS Left lung mass, CT guided core biopsy: Very minute tissue with lymphohistiocytic infiltrate. See comment. PRATIBHA/ 08/25/23 COMMENT The specimen is evaluated at the time of biopsy by Dr. Arenas. Immediate Evaluation = Mildly atypical cells noted. The specimen is sent to [facility] for expert opinion, reviewed by Dr. Hernandez and the above diagnosis is rendered. The complete report is viewable in the patient's EMR. Dr. Hernandez also commented that clinicopathologic radiologic correlation is suggested for final diagnosis. If malignancy is suspected, re-biopsy should be considered. Case has been reviewed in consultation with Dr. Roth who concurs with the above diagnosis. IDC:AM MICROSCOPIC DESCRIPTION Slides are reviewed. GROSS DESCRIPTION Received in fixative is one container labeled with the patient's name and designated Left lung CT guided core biopsy. The specimen consists of multiple irregular fragments of prasad soft tissue that in aggregate measure in aggregate 0.5 x 0.1 x <0.1 cm. The specimen is totally submitted in one cassette. Two touch imprints are prepared at the time of core biopsy. PRATIBHA/ 08/18/23 TC:5 CPT: 39049, 30094
[2023-08-18 08:51] LABS: Platelet Count 289 K/mm3 (150-450)
[2023-08-18 08:58] LABS: International Normalized Ratio 1.1; Partial Thromboplast Time 26.4 Seconds (24.1-36.2); Prothrombin Time (Protime)PT. 13.7 SECONDS (11.7-14.9)
[2023-08-18] MEDS: 0.9% Normal Saline (250mL Bag) 250 ML 15 ML IV (09:30)
[2023-08-18] MEDS: 0.9% Saline Lock 10 ML Syringe IV (09:30)
--- NOTE | 2023-08-18 10:15 | RAD_ITS ---
STUDY: X-RAY CHEST REASON FOR EXAM: Female, 72 years old. Immediately post lung biopsy -- Immediately post lung biopsy TECHNIQUE: AP inspiration and expiration views. COMPARISON: Comparison is made with prior study dated May 27, 2005. FINDINGS: The patient is status post left lung biopsy. No evidence of pneumothorax on the immediate post left lung biopsy radiographs. RAD/Chest Insp/Exp 2 View IMPRESSION: No evidence of pneumothorax on the immediate post left lung biopsy radiographs. Electronically Signed: Sixto Ray MD at 10:54 EDT ,
[2023-08-18] MEDS: fentaNYL 100 MCG/2 ML Ampul IV (10:23)
[2023-08-18] MEDS: Midazolam 2 MG/2 ML Syringe IV (10:23)
[2023-08-18] MEDS: Lidocaine 2% (20 ml mdv) 20 ML Vial INFILT (10:25)
--- NOTE | 2023-08-18 11:27 | PCM.OP.PRO ---
Procedure Report Date of Procedure: 08/18/23 Assessment & Plan Assessment/Plan (1) Mass of lower lobe of left lung: PLAN: PROCEDURE: CT GUIDED CORE NEEDLE LUNG BIOPSY ORDERING PROVIDER: Sandra Wahl CNP INDICATION: Female, 72 years old. Mass of lower lobe of left lung PROVIDER: MIGUEL Forbes CONSENT: Written informed consent was obtained having explained the risks, benefits and alternatives in detail with the patient who accepted the risks and agreed to proceed. Laboratory review and clinical assessment was performed. PRE-PROCEDURE SEDATION ASSESSMENT: Current history and physical dictated by referring physician and reviewed. No clinical changes since date of exam. Patient has an ASA Class of 3. PROCEDURAL SEDATION PROTOCOL: The Drugs used were: 2 mg Versed, IV, and 50 mcg Fentanyl, IV. The sedation time was: 15 minutes, starting at 1023 and terminated at 1038. The procedural sedation protocol was independently monitored by the department nurse. RADIATION DOSAGE (If Supplied By Facility): CTDIvol = 14.46 mGy, DLP = 454.39 mGycm Individualized dose optimization techniques were used for this CT. TECHNIQUE: The patient was placed in a prone position. A noncontrast CT was performed to localize the lesion in the left lower lobe. The skin surface was prepped and draped in a sterile fashion. 2% lidocaine was used for local anesthesia. Using CT guidance, a 20-gauge coaxial biopsy device was advanced to the periphery of the lesion. A total of 5 core specimens were obtained. Specimens were microscopically reviewed by pathology in the CT suite and placed in formalin solution. BioSentry tract sealant system was deployed at the biopsy site, and the biopsy needle was removed. A sterile occlusive dressing was applied to the biopsy site. The patient tolerated the procedure well. An immediate chest xray was ordered, per protocol. A negative biopsy does not exclude malignancy. Further imaging or clinical followup based on patient condition and degree of clinical suspicion for malignancy. Suggest rebiopsy, if biopsy results do not match with clinical scenario. IMPRESSION: 1. CT directed core needle biopsy of left lower lobe nodule using CT image guidance with image documentation as described. Pathology results are pending. 2. Procedural Sedation protocol utilized with independent monitoring by the department nurse. Procedures Radiology Radiology CT Procedures: [id number] Biopsy Lung
--- NOTE | 2023-08-18 12:15 | RAD_ITS ---
STUDY: X-RAY CHEST REASON FOR EXAM: Female, 72 years old. 2 hour post lung biopsy -- 2 hours post lung biopsy TECHNIQUE: AP inspiration and expiration views. COMPARISON: Comparison is made with prior study done earlier today. FINDINGS: The patient is status post left lung biopsy. There is no evidence of pneumothorax. RAD/Chest Insp/Exp 2 View IMPRESSION: No evidence of pneumothorax on the two-hour post left lung biopsy radiographs. Electronically Signed: Sixto Ray MD at 14:02 EDT ,
== END 2023-08-18 23:59 | disposition home or self-care (01) ==
LOC: CT 08:29
PROVIDERS: Referring Provider Nurse Practitioner Acute Care; Visit Provider Nurse Practitioner Acute Care
DX: R91.8 Other nonspecific abnormal finding of lung field (principal); I48.91 Unspecified atrial fibrillation; Z79.02 Long term (current) use of antithrombotics/antiplatelets; R06.09 Other forms of dyspnea
CPT/HCPCS: 32408; 36415; 71046; 77012; 85049; 85610; 85730; 88172; 88305; 88313; 88325; 99156; J7050; C2613

== ENCOUNTER → 2023-11-24 | Outpatient (CLI) | payer MEDICARE, SELFPAY ==
--- NOTE | 2023-11-24 09:00 | PET_ITS ---
EXAMINATION: FDG PET/CT ? INDICATIONS: 73-year-old female with a history of pulmonary nodularity. ? COMPARISON EXAMINATION: FDG-PET CT study dated 07/07/2023. ? INDEX LESION SIZE SUV INTERPRETATION PERSISTENT Left lower lung, left lower lobe ? 1.3 compared to 3.1, 07/07/2023 Quantitative criteria for viable neoplasm are not fulfilled ? NEW Left thoracic perihilum ? 1.9 max Quantitative criteria for viable neoplasm are not fulfilled TECHNIQUE: Following the intravenous administration of 14.4 mCi of F-18 deoxyglucose via the right antecubital fossa, multiplanar image acquisitions of the head, neck, chest, abdomen and pelvis to the level of the midthigh, obtained at one-hour post radiopharmaceutical administration contemporaneously interpreted with the current CT of the chest, abdomen and pelvis dated 11/23/2023 and prior FDG-PET CT study dated 07/07/2023 via coregistration reveal: ? SERUM GLUCOSE LEVEL:? 95 mg/dL? HEIGHT:?? 63 inches WEIGHT:?? 100 pounds ? FINDINGS: ? HEAD/NECK:? There is no evidence of abnormal increased glucose metabolism in the pharyngeal mucosal space, parapharyngeal space, oropharynx, bilateral-lateral and anterior neck, hypopharynx and distribution of the larynx. ? The visualized portion of the cerebral cortical-subcortical structures demonstrate symmetric and preserved glucose metabolism. ? CHEST:? Redefined increased FDG concentration is noted in the left mid lung field, left lower lobe, generating a calculated maximum standard uptake value of 1.3 compared to 3.1 defined on the prior examination. Facilitated FDG concentration is manifest in the left thoracic perihilum. The calculated standard uptake value is 1.9. ? CT of the chest demonstrates the following anatomic characteristics: Additional parenchymal changes noted in the bilateral hemithorax are ametabolic. On review of CT of the chest report, there is no definitive interval change compared to the study dated 07/07/2023. ? ABDOMEN/PELVIS:? Normal physiologic distribution of the radiopharmaceutical is identified in the hepatic (2.4/2.5) and splenic parenchyma, both renal units, urinary bladder, and visualized intestinal tract. ? CT of the abdomen and pelvis is remarkable for the following: On review of CT of the chest report, there is no definitive interval change compared to the study dated 07/07/2023. ? SKELETAL:? Degenerative changes defined in the thoracic and lumbar spine demonstrate no evidence of increased glucose metabolism. There are no sclerotic, mixed sclerotic-lytic, or primarily lytic changes defined in the axial skeletal structures with evidence of increased FDG uptake. ? PET/PET/CT Tumor Base -Thigh Init IMPRESSION: 1. NEGATIVE EXAMINATION. There is no definitive quantitatively significant scintigraphic evidence of viable neoplasm. 2. Enhanced tracer concentration redefined in the left mid lung field, left lower lobe, does not fulfill quantitative criteria for viable neoplasm on the current examination. (Celaya et al, Journal of Nuclear Medicine, 32:1, 1990). 3. Accentuated FDG concentration of the left thoracic perihilum does not fulfill quantitative criteria for malignant transformation. (Leonides et al, Journal of Clinical Oncology, 16:2142, 1998). 4. Overall, compared to the prior FDG PET CT study dated? 07/07/2023, there is current absence of defined viable neoplastic disease. Electronic Signature Jose Alberto Brush D.O. Accurate Quantification of SUVs for this report are calculated using the exclusive [employer]. (U.S. Patent No. 10, 674, 983 B2 [phone] EU patent [id number] [id number]). Standardization and correction of the FDG SUV metric via [employer]AN technology allow for vendor non-specific objective quantitative examination comparison and optimization of the sensitivity and specificity of the FDG PET-CT examination. . [email or web address] Electronically Signed: Jose Alberto Brush DO at 23:49 EDT ,
== END | disposition home or self-care (01) ==
LOC: ONC 08:44
PROVIDERS: Referring Provider Nurse Practitioner Acute Care; Visit Provider Nurse Practitioner Acute Care
DX: R91.8 Other nonspecific abnormal finding of lung field (principal)
CPT/HCPCS: 78815; A9552

== ENCOUNTER → 2024-01-19 | Outpatient (CLI) | payer MEDICARE, SELFPAY ==
--- NOTE | 2024-01-19 13:04 | ECHOD_ITS ---
Reason For Study: CORONARY ARTERY DISEASE Procedure This was a 2D Doppler, Color Flow transthoracic echocardiogram. The study was technically difficult. Exam performed in department. Left Ventricle Normal left ventricle. Left ventricular systolic function is hyperdynamic. The left ventricular ejection fraction is 75 %. Stage 1 diastolic dysfunction. No regional wall motion abnormalities noted. Right Ventricle Normal RV size. Normal systolic function. Atria Normal left atrium. Normal right atrium. Mitral Valve Normal mitral valve. Tricuspid Valve Normal tricuspid valve. Aortic Valve Trisinus/trileaflet aortic valve. Pulmonic Valve Normal pulmonic valve. Great Vessels Normal aortic root. The pulmonary artery is normal size. Inferior vena cava collapse with respiration. Pericardium/Pleural No pericardial effusion. MMode/2D Measurements & Calculations LVIDd: 3.3 cm IVSd: 1.2 cm LVOT diam: 1.7 cm LVIDs: 1.9 cm LVPWd: 0.91 cm LVOT area: 2.2 cm2 RVDd: 2.9 cm FS: 41.8 % Ao root diam: 2.6 cm LAV(MOD-bp): 20.9 ml LVAd ap4: 16.9 cm2 LAV(MOD-bp) Indexed: 14.6 ml/m2 LVLd ap4: 5.8 cm LAV(MOD-sp2): 22.9 ml EDV(MOD-sp4): 39.3 ml LAV(MOD-sp4): 17.6 ml EDV(sp4-el): 41.6 ml LVAs ap4: 6.8 cm2 LVLs ap4: 4.5 cm ESV(MOD-sp4): 8.8 ml ESV(sp4-el): 8.8 ml EF(MOD-sp4): 77.6 % EF(sp4-el): 78.8 % LVAd ap2: 17.1 cm2 SV(MOD-sp4): 30.5 ml SV(MOD-sp2): 27.3 ml LVLd ap2: 6.5 cm EDV(MOD-sp2): 36.8 ml EDV(sp2-el): 38.5 ml LVAs ap2: 7.4 cm2 LVLs ap2: 4.8 cm ESV(MOD-sp2): 9.4 ml ESV(sp2-el): 9.7 ml EF(MOD-sp2): 74.3 % SV(sp4-el): 32.8 ml LA dimension(2D): 2.8 cm LA A4 area: 9.4 cm2 RA A4 area: 9.1 cm2 TAPSE: 1.6 cm Time Measurements MV dec time: 0.21 sec Doppler Measurements & Calculations MV E max scar: 87.3 cm/sec Lat Peak E' Scar: 9.2 cm/sec Med Peak E' Scar: 8.9 cm/sec MV A max scar: 88.3 cm/sec E/E' lat: 9.4 E/E' med: 9.9 MV E/A: 0.99 Ao V2 max: 149.7 cm/sec LV V1 max: 118.1 cm/sec MV dec slope: 422.4 cm/sec2 Ao max P.0 mmHg LV V1 max P.6 mmHg Ao V2 mean: 93.6 cm/sec LV V1 mean P.4 mmHg Ao mean P.1 mmHg LV V1 mean: 71.4 cm/sec Ao V2 VTI: 31.0 cm LV V1 VTI: 23.4 cm AV (velocity ratio): 0.76 BRANDON(I,D): 1.7 cm2 BRANDON(V,D): 1.7 cm2 SV(LVOT): 51.3 ml PA V2 max: 105.5 cm/sec PA max PG (full): 2.7 mmHg ECHO/Echo Complete Interpretation Summary Normal left ventricle. Left ventricular systolic function is hyperdynamic. The left ventricular ejection fraction is 75 %. Stage 1 diastolic dysfunction. Structurally normal valves. Ordering Physician: Dillon Hicks Referring Physician: Dillon Hicks MD Performed By: Bita Sánchez RDCS and Student
== END | disposition home or self-care (01) ==
PROVIDERS: Referring Provider Internal Medicine Cardiovascular Disease; Visit Provider Internal Medicine Cardiovascular Disease
DX: I25.10 Atherosclerotic heart disease of native coronary artery without angina pectoris (principal)
CPT/HCPCS: 93306

== ENCOUNTER → 2024-03-31 | Outpatient (CLI) | payer MEDICARE, SELFPAY ==
--- NOTE | 2024-03-31 15:02 | CT_ITS ---
STUDY: CT CHEST WITHOUT CONTRAST REASON FOR EXAM: Female, 73 years old. NODULE IN HIGH RISK PATIENT RADIATION DOSAGE (If Supplied By Facility): CTDIvol = ( 6.16 ) mGy, DLP = ( 226.18 ) mGycm TECHNIQUE: Transaxial imaging was performed without the administration of intravenous contrast material. Individualized dose optimization techniques were used for this CT. COMPARISON: No relevant priors. FINDINGS: CHEST There is hyperinflation of the lungs consistent with chronic obstructive lung disease (COPD). Diffuse emphysematous changes with bullous formation, prominent in the upper lobes. There is no demonstrated pleural abnormality. There are calcifications of the coronary arteries. There are small small lymph nodes within the mediastinum, which are normal in size and morphology most compatible with reactive lymph hyperplasia. Normal hilar regions. Normal unenhanced pulmonary arteries. There is atherosclerotic calcification of the aortic arch with tortuosity and elongation of the aortic arch and descending thoracic aorta. There are degenerative changes of the thoracic spine. There is no demonstrated abnormality of the visualized upper abdomen. CT/Chest without Contrast IMPRESSION: Hyperinflation and severe emphysematous changes. Electronically Signed: Sixto Ray MD at 11:54 EST ,
== END | disposition home or self-care (01) ==
LOC: CT 14:58
PROVIDERS: Referring Provider Nurse Practitioner Acute Care; Visit Provider Nurse Practitioner Acute Care
DX: R91.8 Other nonspecific abnormal finding of lung field (principal)
CPT/HCPCS: 71250

== ENCOUNTER → 2025-04-19 | Outpatient (CLI) | payer MEDICARE, SELFPAY ==
--- NOTE | 2025-04-19 17:49 | CT_ITS ---
PROCEDURE: LOW DOSE CT LUNG SCREENING 04/19/2025 REASON FOR EXAM: SMOKER TECHNIQUE: Procedure Code: [id number] Modality: CT Procedure: LOW DOSE CT LUNG SCREENING Coronal and Sagittal reconstruction series were provided. One or more dose reduction techniques were used (e.g., Automated exposure control, adjustment of the mA and/or kV according to patient size, use of iterative reconstruction technique). REFERENCE LINK: [facility] Lung-RADS COMPARISON: CT chest 03/31/2024 FINDINGS: PULMONARY NODULES: (Only nodules >3mm are reported) Pulmonary Nodules: None. Hardware:None. Lymph Nodes:No enlarged mediastinal, hilar, or axillary lymph nodes. Heart and Vasculature:Nonenlarged. No pericardial effusion. Coronary Artery Calcifications: Lungs and Airways: Hyperinflation of the lungs with severe emphysematous changes and bullous formation compatible with COPD. Airways are patent. Pleura:No pleural effusion or pneumothorax. Upper Abdomen:Unremarkable. Bones:Degenerative changes of the thoracic spine. No acute fractures. CT/Low Dose CT Lung Screening IMPRESSION: Severe emphysematous changes. No pulmonary nodules. Lung-RADS Category: 1 NEGATIVE. RECOMMEND 12-MONTH SCREENING LDCT. Reading [facility]
== END | disposition home or self-care (01) ==
LOC: CT 17:46
PROVIDERS: Referring Provider Nurse Practitioner Acute Care; Visit Provider Nurse Practitioner Acute Care
DX: Z12.2 Encounter for screening for malignant neoplasm of respiratory organs (principal); F17.210 Nicotine dependence, cigarettes, uncomplicated
CPT/HCPCS: 71271